=== PATIENT | male | born 1940 | race Caucasian/White ===

== ENCOUNTER 2019-02-23 05:42 | Day surgery (SDC) | payer OTHER ==
[~2019-02-23] VITALS: Ht 175.3 cm; Wt 81.7 kg
[~2019-02-23 05:42] MED LIST: FLOMAX PO; LISINOPRIL10 MG PO; LORTAB 5-500 T1 EAC1 PO; METFORMIN HCL500 MG PO; PAXIL 20 MG TAB20 M1 PO; PRESERVISION A1 EAC2 PO; PROSCAR 5MG TABL5 M1 PO; SENNA S TABLET1 EACH PO; SIMVASTATIN40 MG PO; SINGULAIR 10 MG10 M1 PO; SYNTHROID50 MCG PO; XANAX 0.25 MG0.25 MG PO; ZANTAC 150MG T150 MG PO; ZOFRAN4 MG IV
[2019-02-23 07:04] VITALS: BP 117/65
--- NOTE | 2019-02-27 06:15 | O ---
[facility] [place] [address] OPERATIVE REPORT Name: NENA ECHEVERRIA Room #: DEP [facility].#: [id number] Admission: 02/23/19 ������������������ Attend Phys: Izaiah Ribeiro MD Discharge: 02/23/19 ������������������ Date of : 36 Report #: [id number] THIS REPORT FOR: //name// CC: MARISA Bassett Physician staff Izaiah Ribeiro PREOPERATIVE DIAGNOSIS: Tumor of left lower lid and cheek. POSTOPERATIVE DIAGNOSIS: Tumor of left lower lid and cheek. PROCEDURE: Excision of tumor of left lower lid and cheek with frozen section control of margins and myocutaneous flap repair of defect. SURGEON: Izaiah Ribeiro MD CLINICAL LABORATORY MANAGER: None. ANESTHESIA: MAC. COMPLICATIONS: None. 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 Informed consent was obtained to include but not limited to the potential risk for loss of vision, bleeding, infection, failure to improve the problem and the potential need for further surgery or treatment. DESCRIPTION OF PROCEDURE: The patient was taken to the operating room where 2% Xylocaine with epinephrine mixed with equal parts of 0.75% Marcaine with Wydase is administered transconjunctivally and transcutaneously to the left lower lid, the left lateral canthus and the left cheek. The patient was subsequently prepped and draped in the usual sterile fashion. A fine tip skin marking pen was then utilized to outline the lesion including 1-2 mm of normal appearing tissue. Those incisions were then made perpendicularly across the eyelid margin and then drawn down to a point in the premalar tissues. The specimen was then oriented for the waiting pathologist. It was passed off the field. Hemostasis was then achieved in the field. The pathologist snap froze that specimen and although she could not definitively ascertain whether the lesion was a basal cell carcinoma or a squamous cell carcinoma, she felt that her margins were clear. [address] [address] OPERATIVE REPORT Name: NENA ECHEVERRIA Room #: DEP [facility].#: [id number] Admission: 02/23/19 ������������������ Attend Phys: Izaiah Ribeiro MD Discharge: 02/23/19 ������������������ Date of : 36 Report #: [id number] A myocutaneous flap was then developed laterally to be rotated into the defect of the central left lower lid. Hemostasis was then re-achieved. The flap was then advanced and closed with multiple interrupted buried 5-0 Vicryl sutures deep. The eyelid margin was reapproximated with sutures to the tarsal plate with buried knots of 5-0 Vicryl suture. The eyelid margin itself superficially was closed with interrupted 7-0 Vicryl sutures. The subcutaneous structures and the skin were then closed with interrupted 6-0 plain sutures in the skin and Vicryl sutures subcutaneously. The wound was then cleaned and dressed and erythromycin ophthalmic ointment applied to the wound into the eye. The patient was then transported to the recovery area having tolerated the procedure well with no anesthetic or operative complications being noted. ��������������������������������������������� <ELECTRONICALLY SIGNED> ���������������������������������������� By: Izaiah Ribeiro MD ��������������������������������������������� 02/27/19 0615 1 0922 Izaiah Ribeiro MD /nt
--- NOTE | 2019-02-27 08:54 | PATH ---
[facility] [address] [place] [address] PATHOLOGY RPT PROCEDURE Name: NENA ECHEVERRIA Crystal Room #: DEP [facility]..#: [id number] ������������������ Admission: 02/23/19 ������������������ Date of : 36 Discharge: 02/23/19 Report #: [id number] Path Case #: [id number] [facility] Accession Number: [id number] . 01 Material submitted: . LEFT LOWER LID BCCA . 02 Diagnosis: Skin, left lower lid BCCA, excision: - BASAL CELL CARCINOMA, INFILTRATIVE TYPE. - Margins of resection, free of malignancy. (IUV:pit 02/24/2019) QTP/02/24/2019 . 02 Electronically signed: . Akosua Loaiza MD, Pathologist NPI- [id number] . 01 Gross description: . The specimen is received fresh from the OR labeled with the patient's name and "left lower lid BCCA", and consists of an inverted triangular specimen of skin measuring approximately 1.5 cm from base to the top, the base is at the superior end of the specimen and this measures 1 cm. At this point the specimen is inked as follows. The superior to inferior margin to include the lateral margin is inked black, the inferior half of the medial margin is inked blue and the superior halve of the medial margin is inked green. The deep margin is inked orange. At this point the specimen is serially sectioned and entirely submitted for frozen section as FSA1, and subsequently submitted for permanent sections as A1. (IUV:pit 02/23/2019) . . FROZEN SECTION DIAGNOSIS: (Dr. Akosua Loaiza) . FSA1. Skin, left lower lid, excision: - Negative for invasive carcinoma on FS slides. - These findings have been discussed with Dr. Izaiah Ribeiro in OR 6 at [facility] and a written report is placed in the patient's chart. . (IUV:pit 02/23/2019) . Frozen section performed at [facility], [address] [place] [address] , [place] [address]. /QTP . [address] [address] PATHOLOGY RPT PROCEDURE Name: NENA ECHEVERRIA Crystal Room #: DEP [facility] Helder#: [id number] ������������������ Admission: 02/23/19 ������������������ Date of : 36 Discharge: 02/23/19 Report #: [id number] Path Case #: [id number] Pathologist provided ICD-10: C44.1192 . 02 CPT . 289052, [id number] Specimen Comment: A courtesy copy of this report has been sent to Specimen Comment: [phone], . Specimen Comment: Report sent to / ANNA Specimen Comment: A duplicate report has been generated due to demographic updates. Performed at: [address], [place] [id number] MD Yung Gibson MD Phone: [phone] Performed at: [address] [id number] MD Akosua Loaiza MD Phone: [phone]
== END 2019-02-23 08:45 | disposition home or self-care (01) ==
LOC: TBA 05:42 → OR 05:42
DX: C44.1192 Basal cell carcinoma of skin of left lower eyelid, including canthus (principal); F32.9 Major depressive disorder, single episode, unspecified; F41.9 Anxiety disorder, unspecified; Z87.891 Personal history of nicotine dependence; Z79.899 Other long term (current) drug therapy; Z98.890 Other specified postprocedural states; I10 Essential (primary) hypertension; E78.5 Hyperlipidemia, unspecified; Z85.828 Personal history of other malignant neoplasm of skin; E03.9 Hypothyroidism, unspecified; K21.9 Gastro-esophageal reflux disease without esophagitis
CPT/HCPCS: 50010; 50101; 50386; 50398; 51636; 56528; 56531; 62110; 62850; 70005